=== PATIENT | female | born 1995 | race Caucasian/White ===

== ENCOUNTER 2018-09-01 23:16 | Emergency (ER) | payer OTHER ==
--- NOTE | 2018-09-01 23:23 | ED Physician Documentation ---
PD HPI ABD PAIN - Stated complaint Stated Complaint: ABD PX - Chief complaint Chief Complaint: Abd Pain - History obtained from History obtained from: Patient - History of Present Illness Timing - onset: How many hours ago (1-2), Today Timing - duration: Hours (1-2) Timing - details: Abrupt onset, Still present Quality: Cramping, Aching, Pain (She had pain in the lower abdomen radiating to the back. She feels its a bit on both sides in the lower abdomen but more to the left. She cannot find a comfortable position. She has not had pain this bad before. She had similar character of pain but not quite the same severity when she was and there was consideration of a kidney stone but no imaging was done at the time and she had done well.) Location: Suprapubic Radiation: Left flank Improved by: No: Eating, Laying still, Position Worsened by: No: Eating, Moving, Breathing, Position Associated symptoms: Nausea, Loss of appetite. No: Fever, Diarrhea, Constipation, Dysuria Similar symptoms before: No diagnosis (Similar pain of less severity when she was with consideration of possible stone but no work-up was done and she felt better after a day or 2.) Recently seen: Not recently seen Review of Systems Constitutional: denies: Fever, Chills Nose: denies: Rhinorrhea / runny nose, Congestion Throat: denies: Sore throat Cardiac: denies: Chest pain / pressure Respiratory: denies: Cough GI: reports: Abdominal Pain, Nausea. denies: Abdominal Swelling, Vomiting, Diarrhea : denies: Dysuria, Frequency Skin: denies: Rash, Lesions Neurologic: denies: Generalized weakness, Near syncope PD PAST MEDICAL HISTORY - Past Medical History Cardiovascular: None Respiratory: None Neuro: None Endocrine/Autoimmune: None GI: None : None - Present Medications Home Medications: Ambulatory Orders Medication Instructions Recorded Confirmed Ondansetron Odt [Zofran] 4 mg TL Q6H PRN #10 tablet 09/02/18 Oxycodone HCl/Acetaminophen 1 - 2 each PO Q6H PRN #20 tablet 09/02/18 [Percocet 5-325 mg Tablet] RX: Naproxen 375 mg PO BID #20 tablet 09/02/18 RX: Tamsulosin [Flomax] 0.4 mg PO DAILY #5 capsule 09/02/18 - Allergies Allergies/Adverse Reactions: Allergies Allergy/AdvReac Type Severity Reaction Status Date / Time No Known Drug Allergies Allergy Verified 09/01/18 23:21 PD ED PE NORMAL - Vitals Vital signs reviewed: Yes - General General: Alert and oriented X 3, Well developed/nourished, Other (Appears in considerable pain; Restless and moving around to try to find a comfortable position) - HEENT HEENT: Pharynx benign - Neck Neck: Supple, no meningeal sign, No adenopathy - Cardiac Cardiac: RRR, No murmur - Respiratory Respiratory: Clear bilaterally - Abdomen Abdomen: Normal bowel sounds, Soft, Non distended, No organomegaly, Other (Some tenderness to the lower abdomen left more than right but not particularly tender given the degree of pain. There is no percussion or rebound tenderness. There is however some left CVA tenderness.) - Back Back: No spinal TTP - Derm Derm: Normal color, Warm and dry - Extremities Extremities: No deformity, No tenderness to palpate, Normal ROM s pain, No edema, No calf tenderness / cord - Neuro Neuro: Alert and oriented X 3, No motor deficit, Normal speech Results - Vitals Vitals: Vital Signs - 24 hr 09/01/18 09/02/18 09/02/18 23:19 00:06 00:52 Temperature 36 C L Heart Rate 57 L 61 79 Respiratory 18 18 18 Rate Blood Pressure 130/89 H 111/74 109/79 O2 Saturation 100 100 100 09/02/18 01:54 Temperature Heart Rate 79 Respiratory 18 Rate Blood Pressure 121/89 H O2 Saturation 97 Oxygen O2 Source Room air - Labs Labs: Laboratory Tests 09/01/18 23:30 Urine Color YELLOW Urine Clarity HAZY Urine pH 5.5 Ur Specific [place] >=1.030 H Urine Protein TRACE Urine Glucose (UA) NEGATIVE Urine Ketones NEGATIVE Urine Occult Blood MODERATE H Urine Nitrite NEGATIVE Urine Bilirubin NEGATIVE Urine Urobilinogen 0.2 (NORMAL) Ur Leukocyte Esterase NEGATIVE Urine RBC 0-5 Urine WBC 0-3 Ur Squamous Epith Cells FEW Squamous Amorphous Sediment Moderate Urine Bacteria Few Ur Microscopic Review INDICATED Urine Culture Comments NOT INDICATED Urine HCG, Qual NEGATIVE - Rads (name of study) KUB CT Radiology: Prelim report reviewed, EMP read contemporaneously (9-10 mm stone left UVJ with marked hydronephrosis left side. ), See rad report PD MEDICAL DECISION MAKING - ED course Complexity details: reviewed results (She has a very large stone at the left distal ureter measuring 9 to 10 mm. It seems quite large for her to have passed it that far down. However she had not been having ongoing pain until just today. She had had an episode of pain while she was that was similar but not quite as severe. Consider the possibility she may have previously passed a moderate sized stone that had been lodged there for a while and has concreted into a larger one. Anyway she has a large stone at the UVJ that hopefully she will be able to pass. Given referral number for urology if she is not improved in the next couple of days.), re-evaluated patient (feeling much better after several meds, particularly the IV lidocaine. ), considered dif ferential (seems likely kidney stone, but consider ovarian, ruptured cyst, intusseception, etc. ), d/w patient Departure - Departure Disposition: 01 Home, Self Care Clinical Impression: Ureterolithiasis, Sudden onset of severe abdominal pain Condition: Stable Record reviewed to determine appropriate education?: Yes Instructions: ED Stone Renal W Colic Follow-Up: [facility] [Provider Group] Prescriptions: RX: Naproxen 375 mg PO BID #20 tablet Ondansetron Odt [Zofran] 4 mg TL Q6H PRN #10 tablet PRN Reason: Nausea / Vomiting Oxycodone HCl/Acetaminophen [Percocet 5-325 mg Tablet] 1 - 2 each PO Q6H PRN #20 tablet PRN Reason: pain RX: Tamsulosin [Flomax] 0.4 mg PO DAILY #5 capsule Comments: You have a large kidney stone at the end of the ureter on the left side. It was causing some pressure of the kidney as it blocks the flow of urine on that side. With your pain improved now, it may be the flow of urine around it is improved her could be that the stone passed. See if you have recurring pain over the next day or 2. Will presume the stone is still there and have you take some naproxen anti-inflammatory and tamsulosin to reduce ureteral tone and spasm. Use Percocet if needed for pain. Ondansetron if needed for nausea. If you have ongoing pains over the next 2 to 3 days, call the urology group for follow-up appointment for the potential of having it retrieved/removed. If you have no further pain in the next day or 2 then will presume that you passed it. If the pain is severe despite home medications then return to the ER. Discharge Date/Time: 09/02/18 02:11
[2018-09-01] MEDS ORDERED: ONDANSETRON 4 MG/2 ML VIAL IVP STA (23:32)
[2018-09-01] MEDS ORDERED: MORPHINE 10 MG/ML VIAL IVP STA (23:32)
[2018-09-01] MEDS ORDERED: KETOROLAC 30 MG/ML VIAL IVP STA (23:32)
[2018-09-01] MEDS ORDERED: SODIUM CHLORIDE 0.9% 1,000 ML IV ONE (23:32)
[2018-09-01 23:40] LABS: BILIRUBIN,URINE NEGATIVE (NEGATIVE); GLUCOSE, URINE (UA) NEGATIVE (NEGATIVE); KETONES,URINE (UA) NEGATIVE (NEGATIVE); LEUKOCYTE ESTERASE, URINE NEGATIVE (NEGATIVE); NITRITE,URINE NEGATIVE (NEGATIVE); OCCULT BLOOD,URINE MODERATE (NEGATIVE); PH,URINE 5.5 PH (5.0-7.5); PROTEIN,URINE TRACE mg/dL (NEGATIVE); UROBILINOGEN,URINE 0.2 (NORMAL) E.U./dL (NORMAL)
[2018-09-01 23:42] LABS: CLARITY,URINE HAZY (CLEAR); HCG UR QUAL NEGATIVE
[2018-09-01 23:47] LABS: AMORPHOUS SEDIMENT,UR Moderate /LPF; BACTERIA,URINE Few /HPF (None Seen); RBC,URINE 0-5 /HPF (0-5); SQUAMOUS EPITHELIAL CELL,UR FEW Squamous (<= Few)
[2018-09-02] MEDS ORDERED: HYDROmorphone 1 MG/ML CARPUJECT IVP STA (00:11)
[2018-09-02] MEDS ORDERED: LIDOCAINE-MPF 2% 5 ML in SODIUM CHLORIDE 0.9% 50 ML IV STA (00:11)
--- NOTE | 2018-09-02 01:21 | CT Report ---
Reason: abd to left flank pain Procedure Date: 09/02/2018 Accession Number: [id number] / [id number] Procedure: CT - Abdomen/Pelvis WO CPT Code: FULL RESULT: EXAM: CT ABDOMEN AND PELVIS (CT KUB) EXAM DATE: 09/02/2018 12:37 AM. CLINICAL HISTORY: Abdominal pain. COMPARISONS: None. TECHNIQUE: Routine axial helical CT imaging was performed through the abdomen and pelvis without IV contrast. Reconstructions: Coronal and sagittal. In accordance with CT protocol optimization, one or more of the following dose reduction techniques were utilized for this exam: automated exposure control, adjustment of mA and/or KV based on patient size, or use of iterative reconstructive technique. FINDINGS: Right Kidney/Ureter: Hyperdense appearance of the medullary pyramids noted, without evident stones. This may be a sequela of dehydration. No hydronephrosis. Left Kidney/Ureter: There is a large lobulated stone at the left UVJ, measuring 827 HU in density, 9.0 x 9.1 x 12.1 mm (image 120 series 4). There is associated severe left-sided hydroureteronephrosis. Perinephric and periureteric fat stranding is present. Subtle hyperdense appearance of the medullary pyramids noted. Abdominal Solid Organs: Abdominal parenchymal organs are without significant abnormality within the confines of a noncontrast exam. Bowel: No evidence of bowel obstruction. Appendix: Normal. Lymph Nodes: No definite pathologic lymphadenopathy. Fluid: No significant ascites. Vasculature: Normal caliber aorta. Pelvis: No bladder stones. Visualized pelvic organs are without significant abnormality within the confines of a noncontrast exam. Bones: No definite suspicious bony lesions demonstrated. Lower Chest: No significant lung base consolidation or effusion. IMPRESSION: 1. Severe left hydroureteronephrosis secondary to a large lobulated stone at the left UVJ, measuring 9.0 x 9.1 x 12.1 mm. This stone measures 827 HU in density. 2. Hyperdense appearance of the medullary pyramids bilaterally, raising the possibility of medullary nephrocalcinosis. Alternatively findings may be artifact secondary to dehydration. Correlation is needed. 3. No intrarenal stones on the right or the left kidney elsewhere. There is no right-sided hydronephrosis. No bowel obstruction. Appendix is normal. RADIA
[2018-09-02] MEDS ORDERED: oxyCODONE/ACET 5/325 Prepack 4 PO STA (01:53)
[2018-09-02] MEDS ORDERED: TAMSULOSIN 0.4 MG CAPSULE PO STA (01:53)
[2018-09-02] MEDS ORDERED: ONDANSETRON ODT 4 MG Prepack 2 TL PRN (01:53)
[2018-09-02 01:55] VITALS: BP 121/89
== END 2018-09-02 02:11 | disposition home or self-care (01) ==
LOC: ED 23:16
DX: N13.2 Hydronephrosis with renal and ureteral calculous obstruction (principal)
CPT/HCPCS: 74176; 81001; 81025; 96361; 96365; 96375; 99283; 99284; A9270; J1170; J7040; 81003; 87086

== ENCOUNTER 2021-05-30 18:22 | Emergency (ER) | payer OTHER ==
--- NOTE | 2021-05-30 18:37 | ED Physician Documentation ---
PD HPI HEADACHE - Stated complaint Stated Complaint: HEADACHE/VOMIT - Chief complaint Chief Complaint: Neuro - History obtained from History obtained from: Patient - Additional information Additional information: 26-year-old woman with chronic migraines, about twice a month on average. She presents with her typical gradual onset headache but worse than normal, frontal band and associated with light stiffness. Atypically it was associated with a single episode of vomiting today. That said again it is not different than her usual headaches. She denies fevers or neck stiffness. No sick contacts or other recent illness. She is not driving. No chance of . Review of Systems Constitutional: denies: Fever, Chills Ears: denies: Loss of hearing, Ear pain Nose: denies: Rhinorrhea / runny nose Cardiac: denies: Chest pain / pressure, Palpitations Respiratory: denies: Dyspnea, Cough PD PAST MEDICAL HISTORY - Past Medical History Cardiovascular: None Respiratory: None Neuro: None Endocrine/Autoimmune: None GI: None : None - Past Surgical History Past Surgical History: Yes - Present Medications Home Medications: Ambulatory Orders Medication Instructions Recorded Confirmed Naproxen 375 mg PO BID #20 tablet 09/02/18 Ondansetron Odt [Zofran] 4 mg TL Q6H PRN #10 tablet 09/02/18 Oxycodone HCl/Acetaminophen 1 - 2 each PO Q6H PRN #20 tablet 09/02/18 [Percocet 5-325 mg Tablet] Tamsulosin [Flomax] 0.4 mg PO DAILY #5 capsule 09/02/18 SUMAtriptan [Imitrex] 25 mg PO BID PRN #10 tablet 05/30/21 - Allergies Allergies/Adverse Reactions: Allergies Allergy/AdvReac Type Severity Reaction Status Date / Time No Known Drug Allergies Allergy Verified 05/30/21 18:28 - Social History Does the pt smoke?: No Smoking Status: Never smoker Does the pt drink ETOH?: No Does the pt have substance abuse?: No - Immunizations Immunizations are current?: Yes PD ED PE NORMAL - Vitals Vital signs reviewed: Yes - General General: Alert and oriented X 3 (She appears slightly uncomfortable and photophobic, but otherwise no distress.) - HEENT HEENT: PERRL, EOMI - Neck Neck: Supple, no meningeal sign, No bony TTP - Derm Derm: Normal color, Warm and dry - Extremities Extremities: No edema, No calf tenderness / cord - Neuro Neuro: Alert and oriented X 3, school inspector 2-12 intact, No motor deficit, No sensory deficit, Normal speech Eye Opening: Spontaneous Motor: Obeys Commands Verbal: Oriented GCS Score: 15 Results - Vitals Vitals: Vital Signs - 24 hr 05/30/21 18:25 Temperature 36.1 C L Heart Rate 81 Respiratory 16 Rate Blood Pressure 130/88 H O2 Saturation 99 Oxygen O2 Source Room air PD MEDICAL DECISION MAKING - ED course ED course: The headache is gradual in onset and similar to prior headaches. As such I doubt subarachnoid hemorrhage. There are no infectious symptoms such as fever or stiff neck to make me suspect meningitis. No carbon monoxide exposure by history. After the administration of IV fluids, Toradol, Reglan, and Benadryl her headache was almost gone. Departure - Departure Disposition: 01 Home, Self Care Clinical Impression: Migraine Qualifiers: Migraine type: with aura Status migrainosus presence: with status migrainosus Intractability: not intractable Qualified Code(s): G43.101 - Migraine with aura, not intractable, with status migrainosus Condition: Good Record reviewed to determine appropriate education?: Yes Instructions: ED Headache Migraine, Imitrex Prescriptions: SUMAtriptan [Imitrex] 25 mg PO BID PRN #10 tablet PRN Reason: Headache Comments: Call your doctor to arrange a follow-up appointment, make the next available appointment. In the interim, return anytime if worse or if new symptoms develop.
[2021-05-30] MEDS: METOCLOPRAMIDE 10 MG/2 ML VIAL IVP STA (18:50)
[2021-05-30] MEDS: diphenhydrAMINE INJ 50 MG/ML VIAL IVP STA (18:50)
[2021-05-30] MEDS: SODIUM CHLORIDE 0.9% 1,000 ML IV STA (18:50)
[2021-05-30] MEDS: KETOROLAC 15 MG/ML VIAL IVP STA (18:50)
[2021-05-30 19:49] VITALS: BP 101/51
== END 2021-05-30 19:55 | disposition home or self-care (01) ==
LOC: ED 18:22
DX: G43.101 Migraine with aura, not intractable, with status migrainosus (principal)
CPT/HCPCS: 96374; 99283; J1200; J2765

== ENCOUNTER 2021-06-27 08:00 | Outpatient (CLI) | payer OTHER | END 2021-06-27 23:59 | LOC: LAB.N 08:00 | PROVIDERS: ATTEND Family Medicine | DX: N39.0 Urinary tract infection, site not specified (principal) | CPT/HCPCS: 87077; 87086; 87181 ==